=== PATIENT | female | born 1970 | race Caucasian/White ===

== ENCOUNTER → 2016-06-28 | Outpatient (CLI) | payer BC ==
--- NOTE | 2016-06-28 16:32 | REPMRS ---
Patient History The patient states she had a clinical breast exam in Family history of breast cancer in mother. Digital Woman Screen Mammo: June 28, 2016 - Exam #: [id number] Bilateral CC and MLO view(s) were taken. Technologist: Sarahi rCouch, Technologist No prior studies available for comparison. FINDINGS: There are scattered fibroglandular densities. New baseline exam. Priors in 2007 are purged and no longer available. There is a mild amount of residual fibroglandular tissue which is fairly symmetric. There is no dominant mass, architectural distortion, or clustered microcalcification suggestive of malignancy. ASSESSMENT: BI-RADS/ACR category 1 mammogram. Negative. Recommendation Routine screening mammogram in 1 year (for women over age 40). This mammogram was interpreted with the aid of an FDA-approved computer-aided dectection system. A. Negative x-ray reports should not delay biopsy if a dominant or clinically suspicious mass is present. B. Four to eight percent of cancers are not identified by mammography. C. Adenosis and dense breast may obscure an underlying neoplasm. Electronically Signed By: Ramez Livingston MD 06/28/16 [id number]
== END ==
LOC: M WHC 15:15
PROVIDERS: ATTEND Nurse Practitioner Family
DX: Z12.31 Encounter for screening mammogram for malignant neoplasm of breast (principal); Z80.3 Family history of malignant neoplasm of breast

== ENCOUNTER → 2016-06-28 | Outpatient (REF) | payer BC | LOC: M SFHCWAGY 16:12 | PROVIDERS: ATTEND Nurse Practitioner Family | DX: Z12.4 Encounter for screening for malignant neoplasm of cervix (principal); Z11.3 Encounter for screening for infections with a predominantly sexual mode of transmission; R35.0 Frequency of micturition | CPT/HCPCS: 87088; 87186; 87491; 87591; G0123 ==

== ENCOUNTER → 2018-06-29 | Outpatient (REF) | payer BC ==
[2018-07-01 14:09] LABS: HPV HYBRID CAPTURE II Negative (Negative)
== END ==
LOC: M SFHCWAGY 14:23
PROVIDERS: ATTEND Nurse Practitioner Family
DX: Z12.4 Encounter for screening for malignant neoplasm of cervix (principal); Z11.51 Encounter for screening for human papillomavirus (HPV); N76.0 Acute vaginitis
CPT/HCPCS: 87624; G0123

== ENCOUNTER → 2018-06-29 | Outpatient (CLI) | payer BC ==
--- NOTE | 2018-06-29 19:13 | REPMRS ---
Patient History The patient states she had a clinical breast exam in 06/27 Patient is postmenopausal. Family history of breast cancer in mother, breast cancer at age 49 in sister. Digital Woman Screen Mammo: June 29, 2018 - Exam #: [id number] Bilateral CC and MLO view(s) were taken. Technologist: Jimena Blanco, Technologist Prior study comparison: June 28, 2016, digital woman screen mammo performed at [facility]. FINDINGS: There are scattered fibroglandular densities. There has been no change in the appearance of the mammogram from the prior studies. There is a moderate amount of residual fibroglandular tissue which is fairly symmetric. There is no interval development of dominant mass, architectural distortion, or clustered microcalcification suggestive of malignancy. Scattered lymph nodes are seen in the right axilla. 3-D tomosynthesis shows no additional findings. The patient's Tyrer-Cuzick lifetime risk assessment score is 17.9 %. No significant changes when compared with prior studies. Assessment: BI-RADS/ACR category 2 mammogram. Benign Findings. Recommendation Routine screening mammogram in 1 year (for women over age 40). This mammogram was interpreted with the aid of an FDA-approved computer-aided dectection system. A. Negative x-ray reports should not delay biopsy if a dominant or clinically suspicious mass is present. B. Four to eight percent of cancers are not identified by mammography. C. Adenosis and dense breast may obscure an underlying neoplasm. Electronically Signed By: Ramez Livingston MD 06/29/18 [id number]
== END ==
LOC: M WHC 14:15
PROVIDERS: ATTEND Nurse Practitioner Family
DX: Z12.31 Encounter for screening mammogram for malignant neoplasm of breast (principal); Z78.0 Asymptomatic menopausal state; Z80.3 Family history of malignant neoplasm of breast

== ENCOUNTER → 2020-08-19 | Outpatient (REF) | payer BC | LOC: M SFHCWAGY 10:09 | PROVIDERS: ATTEND Advanced Practice Midwife | DX: Z12.4 Encounter for screening for malignant neoplasm of cervix (principal); Z77.9 Other contact with and (suspected) exposures hazardous to health ==

== ENCOUNTER → 2020-08-19 | Outpatient (CLI) | payer BC ==
--- NOTE | 2020-08-19 16:40 | REPMRS ---
Patient History The patient states she had a clinical breast exam in August 19, 2020. Family history of breast cancer in mother, breast cancer at age 49 in sister. 3D TOMOSYNTHESIS WAS PERFORMED. The Sree Torres lifetime risk for breast cancer is 17.3%. Volpara breast density b. Digital Woman Screen Mammo: August 19, 2020 - Exam #: [id number] Bilateral CC and MLO view(s) were taken. Technologist: RT Melissa Prior study comparison: June 29, 2018, bilateral digital woman screen mammo performed at [facility]. June 28, 2016, digital woman screen mammo performed at [facility]. FINDINGS: There are scattered fibroglandular densities. There has been no change in the appearance of the mammogram from the prior studies. There is a mild amount of residual fibroglandular tissue which is fairly symmetric. There is no interval development of dominant mass, architectural distortion, or clustered microcalcification suggestive of malignancy. Assessment: BI-RADS/ACR category 1 mammogram. Negative Mammogram. Recommendation Routine screening mammogram in 1 year (for women over age 40). This mammogram was interpreted with the aid of an FDA-approved computer-aided dectection system. Electronically Signed By: Serafin Fernandez MD 08/19/20 1640
== END ==
LOC: M WHC 14:08
PROVIDERS: ATTEND Advanced Practice Midwife
DX: Z12.31 Encounter for screening mammogram for malignant neoplasm of breast (principal)

== ENCOUNTER → 2022-05-17 | Outpatient (REF) | payer MEDICARE | LOC: M SFHCWAGY 13:17 | PROVIDERS: ATTEND Obstetrics & Gynecology | DX: Z01.419 Encounter for gynecological examination (general) (routine) without abnormal findings (principal); Z12.4 Encounter for screening for malignant neoplasm of cervix; Z77.9 Other contact with and (suspected) exposures hazardous to health | CPT/HCPCS: 87624; G0123 ==

== ENCOUNTER → 2022-05-17 | Outpatient (CLI) | payer BC, MEDICARE, SELFPAY | LOC: M WHC 10:28 | PROVIDERS: ATTEND Obstetrics & Gynecology | DX: Z12.31 Encounter for screening mammogram for malignant neoplasm of breast (principal) ==